=== PATIENT | female | born 1955 | race African-American/Black ===

== ENCOUNTER 2019-08-30 07:33 | Emergency (ER) | payer BC, MEDICAID ==
[~2019-08-30] VITALS: Ht 157.5 cm; Wt 102.0 kg
[2019-08-30] MEDS ORDERED: METF-816 PO (07:50)
[2019-08-30] MEDS ORDERED: GLIP10TA10 PO (07:50)
[2019-08-30 08:02] VITALS: BP 141/62
[2019-08-30] MEDS ORDERED: LIDOCAINE HCL/EPINEPHRINE 1%-EPI 1:100,000 30 ML VIAL INFIL ONE (08:15)
[2019-08-30] MEDS ORDERED: LIDOCAINE HCL/EPINEPHRINE 1%-EPI 1:100,000 20 ML VIAL INFIL ONE (08:30)
== END 2019-08-30 11:07 | disposition home or self-care (01) ==
LOC: ER 07:33
DX: M96.830 Postprocedural hemorrhage of a musculoskeletal structure following a musculoskeletal system procedure (principal); E11.9 Type 2 diabetes mellitus without complications; I10 Essential (primary) hypertension; Z79.899 Other long term (current) drug therapy; Z98.890 Other specified postprocedural states; Z90.710 Acquired absence of both cervix and uterus; Z90.13 Acquired absence of bilateral breasts and nipples
CPT/HCPCS: 12001; 99282; J3490

== ENCOUNTER 2019-09-01 19:29 | Emergency (ER) | payer MEDICAID ==
[~2019-09-01] VITALS: Ht 157.5 cm; Wt 102.0 kg
[~2019-09-01 19:29] MED LIST: GLIP10TA10 PO; METF-816 PO
[2019-09-01] MEDS ORDERED: BACITRACIN ZINC OINT UDPKT TOP ONE (22:45)
[2019-09-01] MEDS ORDERED: CEPHALEXIN 250MG CAPSULE PO ONE (22:45)
[2019-09-01 23:28] VITALS: BP 138/65
== END 2019-09-01 23:34 | disposition home or self-care (01) ==
LOC: ER 19:29
DX: T81.49XA Infection following a procedure, other surgical site, initial encounter (principal); L08.89 Other specified local infections of the skin and subcutaneous tissue; Y84.8 Other medical procedures as the cause of abnormal reaction of the patient, or of later complication, without mention of misadventure at the time of the procedure; Y92.018 Other place in single-family (private) house as the place of occurrence of the external cause; Z90.12 Acquired absence of left breast and nipple
CPT/HCPCS: 93005; 99283

== ENCOUNTER 2019-09-02 12:37 | Emergency (ER) | payer MEDICAID ==
[~2019-09-02] VITALS: Ht 157.5 cm; Wt 102.0 kg
[2019-09-02 16:32] LABS: HEMATOCRIT. 32.9 % (36.0-48.0); HEMOGLOBIN. 10.9 g/dL (12.0-16.0); MEAN CORPUSCULAR HEMOGLOBIN 28.8 pg (28.0-32.0); MEAN CORPUSCULAR VOLUME 86.8 fL (81.0-99.0); MEAN PLATELET VOLUME 8.6 fl (7.4-10.4); PLATELET 232 x1000/uL (130-400); RED BLOOD CELL COUNT 3.79 mill/uL (4.2-5.4); RED CELL DISTRIBUTION WIDTH 14.4 % (11.6-14.6)
[2019-09-02 16:35] LABS: PROTHROMBIN TIME 10.4 sec (9.6-11.0)
[2019-09-02 16:36] LABS: CHLORIDE 97 mEq/L (98-107)
[2019-09-02] MEDS ORDERED: IOHEXOL-300 100 ML BOTTLE ONE (17:41)
[2019-09-02 17:58] LABS: PLATELET ESTIMATE NORMAL
[2019-09-02] MEDS ORDERED: VANCOMYCIN 1 G PREMIX 200 ML IV SCH (18:15)
[2019-09-03 03:48] VITALS: BP 160/79
== END 2019-09-03 03:10 | disposition short-term general hospital (02) ==
LOC: ER 12:55
DX: T81.49XA Infection following a procedure, other surgical site, initial encounter (principal); Y83.8 Other surgical procedures as the cause of abnormal reaction of the patient, or of later complication, without mention of misadventure at the time of the procedure; Y92.098 Other place in other non-institutional residence as the place of occurrence of the external cause
CPT/HCPCS: 36415; 71260; 80053; 82962; 85025; 85610; 87070; 87077; 87186; 87205; 96365; 99285; J3370; Q9967